=== PATIENT | female | born 1985 | race American Indian/Alaskan Native ===

== ENCOUNTER 2021-10-13 17:59 | Emergency (ER) | payer OTHER ==
[2021-10-13 18:18] VITALS: BP 129/73
== END 2021-10-14 04:04 | disposition left against medical advice (07) ==
LOC: ED 17:59
DX: Z04.1 Encounter for examination and observation following transport accident (principal); Z53.21 Procedure and treatment not carried out due to patient leaving prior to being seen by health care provider; V89.2XXA Person injured in unspecified motor-vehicle accident, traffic, initial encounter; Y93.89 Activity, other specified; Y92.89 Other specified places as the place of occurrence of the external cause; Y99.8 Other external cause status